=== PATIENT | female | born 1940 ===

== ENCOUNTER 2021-04-29 06:40 | Day surgery (SDC) | payer OTHER ==
[~2021-04-29 06:40] MED LIST: AMLODIPINE BESYL5 MG PO; ATORVASTATIN CA10 MG PO; DITROPAN XL5 MG PO; GABAPENTIN100 M2 PO; GALANTAMINE HBR8 MG PO; GLIPIZIDE XL2.5 MG PO; LAMOTRIGINE25 MG PO; LANTUS SOL100 UNIT/1; LEVO-T25 MCG PO; METFORMIN HCL1000 M2 PO; VASOTEC20 M1 PO
== END 2021-04-29 15:00 | disposition home or self-care (01) ==
LOC: CIR.AMB 06:40
PROVIDERS: ATTEND Colon & Rectal Surgery
DX: R15.9 Full incontinence of feces (principal)
CPT/HCPCS: 36561; C1778

== ENCOUNTER 2021-05-13 05:54 | Day surgery (SDC) | payer OTHER | END 2021-05-13 10:40 | disposition home or self-care (01) | LOC: CIR.AMB 05:54 → AMB-ENDOS 12:51 → CIR.AMB 13:51 | PROVIDERS: ATTEND Colon & Rectal Surgery | DX: R15.9 Full incontinence of feces (principal); Z20.822 Contact with and (suspected) exposure to COVID-19 | CPT/HCPCS: 64590; 95972; L8679 ==